=== PATIENT | female | born 1960 | race Caucasian/White ===

== ENCOUNTER 2017-09-13 12:31 | Inpatient (IN) | payer OTHER ==
--- NOTE | 2017-09-13 13:32 | RAD ---
INDICATION: Amnesia. COMPARISON: There are no prior studies available for comparison. TECHNIQUE: Contiguous axial sections of the brain were obtained from the skull base to the vertex without contrast. FINDINGS: The ventricles, cisterns and sulci are within normal limits. No significant focal abnormality or mass effect is seen. There is no evidence for hemorrhage. No significant focal osseous abnormality is seen. The visualized portion of the paranasal sinuses and mastoid air cells appear clear. IMPRESSION: NO EVIDENCE FOR ACUTE INTRACRANIAL ABNORMALITY.
[2017-09-13 13:51] LABS: Hematocrit 44 % (35-47); Hemoglobin 15.3 g/dl (12.0-16.0); Mean Corpuscular HGB Conc 35 g/dl (31-36); Mean Corpuscular Hemoglobin 31 pg (27-31); Mean Corpuscular Volume 88 fL (80-97); Mean Platelet Volume 8 um3 (7.4-10.4); Red Blood Count 4.96 10^6/ul (4.0-5.4); Red Cell Distribution Width 13 % (10.5-15); White Blood Count 9.5 10^3/ul (3.5-10.8)
[2017-09-13] MEDS ORDERED: Acetaminophen TAB* 325 MG ONE (13:53)
[2017-09-13] MEDS ORDERED: Acetaminophen TAB* 325 MG PO ONE (13:55)
[2017-09-13 14:10] LABS: ALT 25 U/L (7-52); Albumin 4.3 g/dL (3.2-5.2); Alkaline Phosphatase 67 U/L (34-104); BUN/Creatinine Ratio 17.4 (8-20); Blood Urea Nitrogen 15 mg/dL (6-24); CO2 Carbon Dioxide 23 mmol/L (22-32); Calcium 9.5 mg/dL (8.6-10.3); Chloride 104 mmol/L (101-111); EGFR African American 87.2 (>60); EGFR Non-African American 67.8 (>60); Globulin 2.8 g/dL (2-4); Glucose 119 mg/dL (70-100); Sodium 136 mmol/L (133-145); Total Protein 7.1 g/dL (6.4-8.9)
[2017-09-13 14:34] LABS: Alcohol < 10 mg/dL (<10)
[2017-09-13 14:38] LABS: Anion Gap 9 mmol/L (2-11)
[2017-09-13 14:50] LABS: TSH (Thyroid Stimulating Horm) 0.38 mcIU/mL (0.34-5.60)
[2017-09-13 14:52] LABS: Free T4 0.86 ng/dL (0.61-1.12)
[2017-09-13 15:01] LABS: Vitamin B12 429 pg/mL (180-914)
[2017-09-13 15:06] LABS: Urine Bacteria Absent (Absent); Urine Bilirubin Negative (Negative); Urine Glucose Negative (Negative); Urine Nitrite Negative (Negative)
[2017-09-13 15:08] LABS: AST 26 U/L (13-39); Potassium 3.6 mmol/L (3.5-5.0)
[2017-09-13 15:16] LABS: Benzodiazepine Urine Screen None Detected (None Detect)
[2017-09-13] MEDS ORDERED: ALPRAZolam TAB* 0.25 MG PO PRN (16:36)
[2017-09-13] MEDS ORDERED: Acetaminophen TAB* 325 MG PO PRN (16:38)
[2017-09-13] MEDS ORDERED: Atorvastatin* 10 MG TAB PO SCH (18:00)
[2017-09-13] MEDS: Heparin VIAL(*) 5000 UNITS/ML VIAL (FIVE THOUSAND) SUBCUT SCH (20:45)
--- NOTE | 2017-09-13 21:42 | HP ---
CC: Dr. Daly * [facility] MEDICINE HISTORY AND PHYSICAL: DATE OF ADMISSION: 09/13/17 PRIMARY CARE PROVIDER: Dr. Daly. ATTENDING PHYSICIAN: Aura García MD * (dictation provided by Naima Mesa NP ) CHIEF COMPLAINT: Amnesia. HISTORY OF PRESENT ILLNESS: Ms. Hood is a 57-year-old female with past medical history of recent treatment for depression and anxiety as well as a more distant history in 2014 of what was thought to be a transient global amnesia episode. Ms. Hood notes that in 2015, she had an episode of amnesia where was at work and the next thing she remembers she was at home wearing different clothing. She had no recollection of about a 5 to 6 hour event. She was seen by her primary care physician and went on to have brain MRI, carotid Doppler study, transthoracic echocardio-gram, EEG and consultation with Dr. Mora from Neurology. This workup was negative other than to show that the patient had some concern for few scattered small foci of elevated T2/FLAIR signal within the periventricular, subcortical, and pontine white matter. The patient had no further episodes until today. Per the patient's boyfriend who was with her at that time, he states that when she went to get out of bed that she seemed confused. She repeatedly stated that she could not remember what happened on Thanksgiving, nor did she remember making pies before Thanksgiving. She did not remember an intervening meeting with friend. She ultimately was brought by her friend to the emergency room over from [place]. The friend states that the patient did remember driving in the car. The patient states she has some better recollection now. She remembers being in the parking lot here at the hospital. She does remember some of Thanksgiving, but her memory seems spotty. She had headache in the emergency room, but this resolved well with Tylenol. She denies any other recent complaints. She has had no fevers. No chills. No chest pain. No shortness of breath. No nausea, vomiting, diarrhea, or abdominal pain. She does feel a bit nauseous at this time. In the emergency room, Ms. Hood had a CT brain, which showed no evidence for acute intracranial abnormality. Her labs were unremarkable. Urine showed no evidence of infection. Tox screen was negative. Vital signs are stable. PAST MEDICAL HISTORY: 1. 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 2. Depression. 3. Anxiety. MEDICATIONS: 1. Escitalopram 10 mg p.o. daily. 2. Loratadine 1 tab daily. 3. Multivitamin with mineral 1 tab p.o. q.a.m. 4. Alprazolam 0.25 mg p.o. q.8 hours p.r.n. 5. Aspirin 81 mg p.o. q.a.m. 6. Simvastatin 10 mg p.o. q.p.m. ALLERGIES: No known drug allergies. FAMILY HISTORY: Her father is alive and well. There is no family history of migraines. SOCIAL HISTORY: No report of tobacco use. The patient drinks alcohol very occasionally. There is no report of illicit drug use. She states that her friend, Madhuri and her daughter would be the healthcare proxies. REVIEW OF SYSTEMS: Constitutional: No fevers, no chills, no unintended weight loss. Cardiac: No chest pain or edema. Respiratory: No cough, hemoptysis, or shortness of breath. GI: Positive for a little bit of nausea now in the emergency room. No vomiting. No nausea before. No diarrhea. No abdominal pain. : No gross hematuria or dysuria. Neuro: No focal weakness or sensory loss. Positive for amnesia. Eyes: No visual complaints. ENT: No dysphagia. Musculoskeletal: No arthralgias or myalgias. Skin: No rashes or lesions. Psych: Positive for depression and anxiety. PHYSICAL EXAMINATION GENERAL: Ms. Hood is sitting up in the bed. She is in no acute distress. VITAL SIGNS: Blood pressure 180/81, heart rate 80, temperature 97.0, respiratory rate 16, O2 saturation 98% on room air. NEURO: She is alert and oriented x3. She moves all extremities equally. There is no facial asymmetry or focal weakness. Her pupils are equal and reactive to light. Her extraocular movements are intact. She has good rapid finger movements. She has good known ataxia noted with [id number]. She has good normal [id number] without evidence of ataxia. LABORATORY DATA/DIAGNOSTIC STUDIES: Sodium 136, potassium 3.6, chloride 104, serum bicarbonate 23, BUN 15, creatinine 0.86, glucose 119. White blood cell count 9.5, hemoglobin 15.3, hematocrit 44, platelets 236,000. INR 0.88. CT brain shows no evidence of acute intracranial abnormalities. EKG shows sinus rhythm with heart rate of 77. No evidence of ischemia. ASSESSMENT: Ms. Hood is a 57-year-old female with past medical history of depression and anxiety with concern for possible transient global amnesia in the past who presents to the hospital today with an episode where she seems to have retrograde amnesia. Our plans are for observation in the hospital for the followin. Retrograde amnesia: Her symptoms are similar to transient global amnesia. However, she did have abnormal MRI with FLAIR signal in white matter diffusely back in 2015. This case had been reviewed with Dr. Monatna. He would like to the patient admitted to the hospital for repeat MRI and neurological consultation. The patient will have neurological checks q.4 hours. 2. Depression and anxiety. Continue alprazolam. Escitalopram is not available on formulary. She can resume that when she returns home. 3. Code status is full code. TIME SPENT: Approximately 60 minutes were spent on the admission of this patient, more than half the time spent with the patient at the bedside reviewing the events leading up to this hospitalization, performing the physical examination, and reviewing my plan of care. NAIMA MESA NP [id number]/CPS #: [id number] HORACIO
--- NOTE | 2017-09-13 22:27 | ED ---
Madhuri Verdin Abhishek, scribed for Maldonado Cabrera MD on 09/13/17 at 1312 . Neurological HPI - HPI Summary HPI Summary: This patient is a 57 year old F [facility] accompanied by female and male with a chief complaint of memory loss since last night. Pt reports intermittent sleeping. Pt states she does not recall some events from thanksgiving dinner and after, however she has started to remember events prior to thanksgiving. Pt's male friend states that she was disoriented at around 0400 after "checking her phone to look at thanksgiving pictures." The patient rates the pain 0/10 in severity. Symptoms aggravated by nothing. Symptoms alleviated by nothing. Patient reports nausea, and sexual activity last night. Patient denies stress, lack of sleep, appetite change, no tingling, no numbness , SOB, weight loss or weight gain. Patient reports taking the following medication(s): simvastatin, and an antidepressant. - History of Current Complaint Chief Complaint: EDNeurologicalDeficit Stated Complaint: MEMORY LOSS Time Seen by Provider: 09/13/17 12:53 Hx Obtained From: Patient, Other: - male and female female companions Hx From Patient Unobtainable Due To: Other - memory loss Onset/Duration: Gradual Onset, Started hours ago - since last night Pain Intensity: 0 Pain Scale Used: 0-10 Numeric Character: Other: - disorientated Aggravating: Nothing Alleviating: Nothing Associated Signs and Symptoms: Positive: Memory Loss, Nausea/Vomiting - Allergy/Home Medications Allergies/Adverse Reactions: Allergies Allergy/AdvReac Type Severity Reaction Status Date / Time No Known Allergies Allergy Verified 09/13/17 12:34 Home Medications: Home Medications ALPRAZolam TAB* [Xanax TAB*] 0.25 mg PO Q8H PRN 09/13/17 [History Confirmed ] Escitalopram (NF) [Lexapro 10 mg (NF)] 10 mg PO DAILY 09/13/17 [History Confirmed 09/13/17] PMH/Surg Hx/FS Hx/Imm Hx Endocrine/Hematology History: Denies: Hx Diabetes Cardiovascular History: Denies: Hx Hypertension Respiratory History: Denies: Hx Asthma History: Denies: Hx Renal Disease Sensory History: Reports: Hx Contacts or Glasses - reading inst given, Hx Hearing Aid - inst given luis hearing aids Opthamlomology History: Reports: Hx Contacts or Glasses - reading inst given Neurological History: Reports: Other Neuro Impairments/Disorders - transient global amnesia Psychiatric History: Denies: Hx Panic Disorder - Cancer History Hx Chemotherapy: No Hx Radiation Therapy: No - Surgical History [place], [place], and [place] [facility] [place] [facility] [place] 2012 [facility]; SCAR TISSUE LUMP RT BREAST 2013 [facility] Hx Anesthesia Reactions: Yes - TAKES LONG TIME TO WAKE UP, VOMITING Infectious Disease History: No Infectious Disease History: Denies: History Other Infectious Disease, Traveled Outside the [place] in Last 30 Days - Family History Known Family History: Positive: Cardiac Disease - [place], Other - Negative CVA, and breast cancer - Social History Alcohol Use: Occasionally Alcohol Amount: 2-6/MONTH Substance Use Type: Reports: None Smoking Status (MU): Never Smoked Tobacco Review of Systems Constitutional: Negative Eyes: Negative ENT: Negative Cardiovascular: Negative Negative: Shortness Of Breath Positive: Nausea Genitourinary: Other - sexual activity last night Musculoskeletal: Negative Skin: Negative Neurological: Other - Negative stress, lack of sleep, appetite change, and weight loss or gain Negative: Numbness Psychological: Normal All Other Systems Reviewed And Are Negative: Yes Physical Exam - Summary Physical Exam Summary: Constitutional: Well-developed, Well-nourished, Alert. (-) Distressed Skin: Warm, Dry HENT: Normocephalic; Atraumatic Eyes: Conjunctiva normal Neck: Musculoskeletal ROM normal neck. (-) JVD, (-) Stridor, (-) Tracheal deviation Cardio: Rhythm regular, rate normal, Heart sounds normal; Intact distal pulses; The pedal pulses are 2+ and symmetric. Radial pulses are 2+ and symmetric. (-) Murmur Pulmonary/Chest wall: Effort normal. (-) Respiratory distress, (-) Wheezes, (-) Rales Abd: Soft, (-) Tenderness, (-) Distension, (-) Guarding, (-) Rebound Musculoskeletal: (-) Edema Lymph: (-) Cervical adenopathy Neuro: Alert, Oriented x3 Psych: Mood and affect Normal Triage Information Reviewed: Yes Vital Signs On Initial Exam: Initial Vitals Temp Pulse Resp BP Pulse Ox 97.0 F 87 16 180/81 98 09/13/17 12:35 09/13/17 12:35 09/13/17 12:35 09/13/17 12:35 09/13/17 12:35 Vital Signs Reviewed: Yes Diagnostics - Vital Signs Vital Signs Temp Pulse Resp BP Pulse Ox 09/13/17 12:35 97.0 F 87 16 180/81 98 - Laboratory Lab Results: Lab Results 09/13/17 09/13/17 09/13/17 Range/Units 13:40 13:40 13:40 WBC 9.5 (3.5-10.8) 10^3/ul RBC 4.96 (4.0-5.4) 10^6/ul Hgb 15.3 (12.0-16.0) g/dl Hct 44 (35-47) % MCV 88 (80-97) fL MCH 31 (27-31) pg MCHC 35 (31-36) g/dl RDW 13 (10.5-15) % Plt Count 236 (150-450) 10^3/ul MPV 8 (7.4-10.4) um3 INR (Anticoag Therapy) 0.88 L (0.89-1.11) APTT 29.1 (26.0-36.3) seconds Sodium 136 (133-145) mmol/L Potassium 3.6 (3.5-5.0) mmol/L Chloride 104 (101-111) mmol/L Carbon Dioxide 23 (22-32) mmol/L Anion Gap 9 (2-11) mmol/L BUN 15 (6-24) mg/dL Creatinine 0.86 (0.51-0.95) mg/dL Est GFR ( Amer) 87.2 (>60) Est GFR (Non-Af Amer) 67.8 (>60) BUN/Creatinine Ratio 17.4 (8-20) Glucose 119 H (70-100) mg/dL Calcium 9.5 (8.6-10.3) mg/dL Total Bilirubin 0.50 (0.2-1.0) mg/dL AST 26 (13-39) U/L ALT 25 (7-52) U/L Alkaline Phosphatase 67 (34-104) U/L Total Protein 7.1 (6.4-8.9) g/dL Albumin 4.3 (3.2-5.2) g/dL Globulin 2.8 (2-4) g/dL Albumin/Globulin Ratio 1.5 (1-3) Vitamin B12 429 (180-914) pg/mL TSH 0.38 (0.34-5.60) mcIU/mL Free T4 0.86 (0.61-1.12) ng/dL Urine Color Urine Appearance Urine pH (5-9) Ur Specific [place] (1.010-1.030) Urine Protein (Negative) Urine Ketones (Negative) Urine Blood (Negative) Urine Nitrate (Negative) Urine Bilirubin (Negative) Urine Urobilinogen (Negative) Ur Leukocyte Esterase (Negative) Urine WBC (Auto) (Absent) Urine RBC (Auto) (Absent) Ur Squamous Epith Cells (Absent) Urine Bacteria (Absent) Urine Glucose (Negative) Urine Ascorbic Acid (Negative) Urine Opiates Screen (None Detect) Ur Barbiturates Screen (None Detect) Ur Phencyclidine Scrn (None Detect) Ur Amphetamines Screen (None Detect) U Benzodiazepines Scrn (None Detect) Urine Cocaine Screen (None Detect) U Cannabinoids Screen (None Detect) Serum Alcohol < 10 (<10) mg/dL 09/13/17 09/13/17 Range/Units 14:31 14:31 WBC (3.5-10.8) 10^3/ul RBC (4.0-5.4) 10^6/ul Hgb (12.0-16.0) g/dl Hct (35-47) % MCV (80-97) fL MCH (27-31) pg MCHC (31-36) g/dl RDW (10.5-15) % Plt Count (150-450) 10^3/ul MPV (7.4-10.4) um3 INR (Anticoag Therapy) (0.89-1.11) APTT (26.0-36.3) seconds Sodium (133-145) mmol/L Potassium (3.5-5.0) mmol/L Chloride (101-111) mmol/L Carbon Dioxide (22-32) mmol/L Anion Gap (2-11) mmol/L BUN (6-24) mg/dL Creatinine (0.51-0.95) mg/dL Est GFR ( Amer) (>60) Est GFR (Non-Af Amer) (>60) BUN/Creatinine Ratio (8-20) Glucose (70-100) mg/dL Calcium (8.6-10.3) mg/dL Total Bilirubin (0.2-1.0) mg/dL AST (13-39) U/L ALT (7-52) U/L Alkaline Phosphatase (34-104) U/L Total Protein (6.4-8.9) g/dL Albumin (3.2-5.2) g/dL Globulin (2-4) g/dL Albumin/Globulin Ratio (1-3) Vitamin B12 (180-914) pg/mL TSH (0.34-5.60) mcIU/mL Free T4 (0.61-1.12) ng/dL Urine Color Yellow Urine Appearance Clear Urine pH 5.0 (5-9) Ur Specific [place] 1.009 L (1.010-1.030) Urine Protein Negative (Negative) Urine Ketones Negative (Negative) Urine Blood 1+ H (Negative) Urine Nitrate Negative (Negative) Urine Bilirubin Negative (Negative) Urine Urobilinogen Negative (Negative) Ur Leukocyte Esterase Negative (Negative) Urine WBC (Auto) Absent (Absent) Urine RBC (Auto) Trace(0-2/hpf) (Absent) Ur Squamous Epith Cells Present H (Absent) Urine Bacteria Absent (Absent) Urine Glucose Negative (Negative) Urine Ascorbic Acid * H (Negative) Urine Opiates Screen None detected (None Detect) Ur Barbiturates Screen None detected (None Detect) Ur Phencyclidine Scrn None detected (None Detect) Ur Amphetamines Screen None detected (None Detect) U Benzodiazepines Scrn None detected (None Detect) Urine Cocaine Screen None detected (None Detect) U Cannabinoids Screen None detected (None Detect) Serum Alcohol (<10) mg/dL Result Diagrams: 09/13/17 13:40 09/13/17 13:40 Lab Statement: Any lab studies that have been ordered have been reviewed, and results considered in the medical decision making process. - CT Brain CT CT Interpretation Completed By: Radiologist - Ct Brain reveals NO EVIDENCE FOR ACUTE INTRACRANIAL ABNORMALITY. ED physician has reviewed this radiology report and agrees. - EKG 1502 EKG Rhythm: Sinus Rhythm - [address] Segment: Normal Re-Evaluation - Re-Evaluation 1456 Re-Evaluation Time: 14:56 Comment: Patient feels overwhelemed about being admitted and wants to talk to her best friend. Patient is having some recollection of events now. 1523 Comment: Patient is willing to stay in the [facility] and be admitted for observation Course/Dx - Course Course Of Treatment: This patient is a 57 year old F presenting to [facility] accompanied by female and male with a chief complaint of memory loss since last night. Patient reports nausea. Patient denies stress, lack of sleep, appetite change, no tingling, no numbness, SOB, weight loss or weight gain. Patient reports taking the following medication(s): simvastatin, and an antidepressant. Ct Brain reveals NO EVIDENCE FOR ACUTE INTRACRANIAL ABNORMALITY. ED physician has reviewed this radiology report and agrees. An EKG at 1502 reveals 77 bpm, sinus rhythm and normal ST segment. Consulted with Dr. [place] at 1430 and discussed prior abnormal MRI. He recommends another MRI and possible admittance into observation in the hospital today as well as Increase to full strength aspirin. Reeval at 1456: patient feels overwhelmed and wants to talk to her best friend. Patient is having some recollection of events now. Reeval at 1522 : patient agrees to stay in [facility] for admittance. Consulted with Dr. Jack and she accepts patient care at 1540. Dx will be retrograde amnesia and history of vascular disease. Patient will be admitted in the [facility] for observation. Patient is agreeable with this plan. - Diagnoses Provider Diagnoses: History of vascular disease, Retrograde amnesia - Physician Notifications Discussed Care Of Patient With: Aura Jack Time Discussed With Above Provider: 15:40 Instructed by Provider To: Admit As Observation Discharge - Discharge Plan Condition: Good Disposition: ADMITTED TO [facility] documentation as recorded by the Madhuri joshua Abhishek accurately reflects the service I personally performed and the decisions made by me, Maldonado Cabrera MD.
[2017-09-14] MEDS: Heparin VIAL(*) 5000 UNITS/ML VIAL (FIVE THOUSAND) SUBCUT SCH ×3 (05:47→23:14)
[2017-09-14] MEDS ORDERED: Aspirin Low Dose CHEW TAB* 81 MG PO SCH (09:00)
--- NOTE | 2017-09-14 11:06 | RAD ---
Indication: Sudden onset memory loss. Comparison: September 13, 2017 CT and July 04, 2015 MRI. Technique: [facility] 1.5 Darlyn [id number] with GEM suite. MRI brain without contrast. Report: Solitary small focus of restricted diffusion with corresponding decreased signal on ADC map at the RIGHT temporal lobe parahippocampal gyrus consistent with acute or subacute ischemia. Negative for associated mass effect. Small burden of nonspecific T2 and FLAIR hyperintense foci at the periventricular and subcortical white matter of the frontal and parietal lobes without significant interval change. Unremarkable cerebral sulci, ventricles, and basal cisterns. No intra or extra-axial fluid collection evident. Unremarkable orbital contents. Preserved major intracranial flow-voids. Clear paranasal sinuses and mastoid air spaces. Unremarkable calvarium and skull base as well as the scalp. IMPRESSION: 1. Small focus of acute or subacute ischemia at the RIGHT temporal lobe parahippocampal gyrus. 2. No significant change in mild burden of nonspecific T2 hyperintensities at the periventricular and subcortical white matter of the cerebral hemispheres most likely representing chronic small vessel ischemic disease. Results discussed with Nurse Grant on 09/14/2017 11:01 AM EST
[2017-09-14 11:43] LABS: Cholesterol 267 mg/dL; HDL Cholesterol 63.7 mg/dL; LDL Cholesterol 163 mg/dL; Triglycerides 203 mg/dL
[2017-09-14] MEDS ORDERED: Iohexol 350* (CONTRAST) 500 ML MDV IV ONE (14:15)
[2017-09-14] MEDS: Clopidogrel TAB* 75 MG PO SCH (14:24)
--- NOTE | 2017-09-14 16:02 | RAD ---
INDICATION: CVA COMPARISON: MRI brain September 14, 2017 TECHNIQUE: Axial source images were acquired with coronal and sagittal reconstructions. CT angiographic technique was utilized with injection of 80 mL Omnipaque 350. FINDINGS: Aortic arch: There are no CT angiogram abnormalities of the arch or the great vessels arising from the arch. Right carotid: The internal carotid artery, carotid bifurcation, extracranial portions of the internal carotid artery, carotid artery at the skull base, carotid siphon, and carotid termination appear normal. Left carotid:The internal carotid artery, carotid bifurcation, extracranial portions of the internal carotid artery, carotid artery at the skull base, carotid siphon, and carotid termination appear normal. Right middle and anterior cerebral arteries: There are no CT angiographic abnormalities of the middle or anterior cerebral arteries. Left middle and anterior cerebral arteries: There are no CT angiographic abnormalities of the middle or anterior cerebral arteries Right vertebral: The CT angiographic appearance of the vertebral artery is normal. Left vertebral: The CT angiographic appearance of the vertebral artery is normal. Basilar artery: The basilar artery and basilar tip appear normal. Posterior cerebral arteries: The distal distribution of the right and left posterior cerebral arteries is normal. [place] of [place]: The CT angiographic appearance of the [place] of [place] is normal. Source images show no evidence of mass or adenopathy within the neck. There are no focal brain parenchymal abnormalities or abnormal areas of enhancement. IMPRESSION: THE CT AND RADIOGRAPHIC ABNORMALITIES. CPT II Codes: 3100F PQRS
--- NOTE | 2017-09-14 17:21 | PN ---
Subjective Date of Service: 09/14/17 Interval History: Patient states that her memory of the time in which she was previous amnestic has improved to the point that she only can't remember from 0000 to 0800 on . Patient denies any other complaints, including weakness, numbness, tingling , changes in vision, slurred speech, chest pain, SOB, N/V, dizziness, F/C, abdominal pain, diarrhea, constipation, or other abnormality. 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 Bilateral Conversational hearing loss. Objective Active Medications: Acetaminophen (Tylenol Tab*) 650 mg PO Q6H PRN PRN Reason: PAIN Last Admin: 09/14/17 15:30 Dose: 650 mg Alprazolam (Xanax Tab*) 0.25 mg PO Q8H PRN PRN Reason: ANXIETY Atorvastatin Calcium (Lipitor*) 20 mg PO QPM [facility] Clopidogrel Bisulfate (Plavix Tab*) 75 mg PO DAILY [facility] Last Admin: 09/14/17 14:24 Dose: 75 mg Heparin Sodium (Porcine) (Heparin Vial(*)) 5,000 units SUBCUT Q8HR [facility] Last Admin: 09/14/17 13:42 Dose: 5,000 units Temp Pulse Resp BP Pulse Ox 98.5 F 74 16 128/72 97 09/14/17 11:26 09/14/17 11:26 09/14/17 11:26 09/14/17 11:26 09/14/17 11:26 Oxygen Devices in Use Now: None Appearance: Patient is a 57yo female who appears stated age and is sitting in the bed in [facility]. Eyes: No Scleral Icterus, PERRLA Ears/Nose/Mouth/Throat: NL Teeth, Lips, Gums, Clear Oropharnyx, Mucous Membranes Moist Neck: NL Appearance and Movements; NL JVP, Trachea Midline Respiratory: Symmetrical Chest Expansion and Respiratory Effort, Clear to Auscultation Cardiovascular: NL Sounds; No Murmurs; No JVD, RRR, No Edema Abdominal: NL Sounds; No Tenderness; No Distention, No Hepatosplenomegaly Lymphatic: No Cervical Adenopathy Extremities: No Edema, No Clubbing, Cyanosis Skin: No Rash or Ulcers, No Nodules or Sclerosis Neurological: Alert and Oriented x 3, NL Sensation, NL Gait, NL Muscle Strength and Tone, - - CN II-XII intact. Cerebellar testing normal. Reflexes 2+ and symmetrical B/L. Result Diagrams: 09/13/17 13:40 09/13/17 13:40 Additional Lab and Data: Lab Results Assess/Plan/Problems-Billing Assessment: Patient is a 57yo female with a PMH significant for TGA, Depression, Anxiety, and previous white matter lesions on MRI who presents with global amnesia spanning 8 hours who was found to have an acute to subacute area of ischemia in the right temporal lobe. - Patient Problems (1) Right temporal lobe infarction Current Visit: Yes Status: Acute Code(s): I63.50 - CEREB INFRC DUE TO UNSP OCCLS OR STENOS OF UNSP CEREB ARTERY SNOMED Code(s): 166297812 Comment: MRI shows CVA of right temporal lobe. Appreciate neurology consult. Unusual presentation, concern for autoimmune white matter disease. Will check Vitamin D level. Concern for hypercoagulability, workup pending. No other neurological deficits. Ocurred while on ASA, will switch to Plavix. CTA of head and Neck WNL. Echo with bubble study pending. Echo from 2015 showed no abnormalities. LDL 163 and HbA1c is 5.8. (2) TGA (transient global amnesia) Current Visit: Yes Status: Acute Code(s): G45.4 - TRANSIENT GLOBAL AMNESIA SNOMED Code(s): 301955472 Comment: Improving, abnormal presentation for this type of stroke. Will continue to monitor. (3) Anxiety Current Visit: Yes Status: Acute Code(s): F41.9 - ANXIETY DISORDER, UNSPECIFIED SNOMED Code(s): 58137462 Comment: Continue Citalopram. Patient anxious about diagnosis but coping well. (4) Hyperlipidemia Current Visit: Yes Status: Acute Code(s): E78.5 - HYPERLIPIDEMIA, UNSPECIFIED SNOMED Code(s): 21759659 Comment: Increase Lipitor to 20mg from 5mg of Simvastatin. Recommend F/U outpatient. (5) Prediabetes Current Visit: Yes Status: Acute Code(s): R73.03 - PREDIABETES SNOMED Code (s): 170735436 Comment: HgA1c 5.8. Discussed lifestyle changes to manage diabetes with patient. (6) DVT prophylaxis Current Visit: Yes Status: Acute Code(s): JVA9697 - SNOMED Code(s): 681466680 Comment: Heparin subQ. (7) Full code status Current Visit: Yes Status: Acute Code(s): Z78.9 - OTHER SPECIFIED HEALTH STATUS SNOMED Code(s): 140677470 Status and Disposition: Patient is admitted inpatient. Estimated LOS 1 day.
[2017-09-14] MEDS ORDERED: Atorvastatin* 10 MG TAB PO SCH (18:00)
--- NOTE | 2017-09-14 20:31 | CONS ---
CONSULTATION REPORT: DATE OF CONSULT/DICTATION: 09/14/17 PATIENT OF: Dr. Daly and Naima Mesa NP HISTORY OF PRESENT ILLNESS: This is a 57-year-old woman I am asked to evaluate for short-term memory loss. Of note, in September of 2015, she had an episode of acute short-term memory loss with complete amnesia for 5 to 6 hours. She had an EEG at that time with frontally dominant slowing during hyperventilation suggestive of mild cerebral dysfunction, but no epileptiform potentials. She had an MRI at that time showing some disease in the white matter, small foci of white matter disorder, either thought to be secondary to small vessel ischemic change, migraine headache or demyelination. She also had a transthoracic echo, which was normal and she had a carotid Doppler done in June 2015 that showed no significant stenosis, but some atheromatous disease. I spoke to the boyfriend who was with her. They have been making love the evening and night before admission up until 4 in the morning. She then went to sleep and when she woke up, she had no recollection of several-day period of time up until and including Thanksgiving. Her memory slowly improved throughout the course of yesterday, but she could still not remember the events of that night. She can remember Thanksgiving, and she has good short-term recall at this point. I spoke to the boyfriend by phone, who confirms that they have been making love. He also notes that she jerked a couple of times in her sleep that is not rhythmic and he did not at that time think there was anything suspicious going on and then when she woke, she did not remember anything. She has a history of depression and anxiety in addition to her suspected transient global amnesia. PAST MEDICAL HISTORY: She had a pop-pop bypass in 2006, , and a breast reduction. MEDICATIONS: On admission include: 1. Alprazolam 0.25 q.8 hours p.r.n. 2. Loratadine 1 tab daily. 3. Escitalopram 10 mg daily. 4. Aspirin 81 mg a day. 5. Simvastatin 10 mg a day. ALLERGIES: No known drug allergies. FAMILY HISTORY: Father is alive and well. There is no family history for strokes or migraine. SOCIAL HISTORY: She does not use tobacco. She drinks occasionally. No drug use. REVIEW OF SYSTEMS: She has had no clearcut prior seizures. Review of systems negative in all 14 spheres other than the HPI. PHYSICAL EXAM: Temperature 97.6, pulse 76, respirations 16, blood pressure 133/ 74. She is alert and oriented with normal speech and comprehension. Memory was 3/3. Cranial nerves II through XII were normal. Fundi were benign. Motor exam revealed normal tone, strength, coordination, and [id number]. Strength 5/ 5. Sensation was intact to light touch. Reflexes were 2 and equal, downgoing toes. Neck was supple. Chest: Clear. Cardiovascular: Regular rate and rhythm. Abdomen: Soft with positive bowel sounds. DIAGNOSTIC STUDIES/LAB DATA: Her CT scan was negative. Labs include negative drug screen. Negative UA. CMP normal. Normal B12 and thyroid testing. INR is 0.88, PTT 29. Normal CBC. IMPRESSION AND PLAN: Caitlin had a second episode of what sounds like transient global amnesia. Two things to comment on from last hospitalization for this, one was her abnormal MRI scan and this was in somebody who is 57 at the time so white matter disease is somewhat unusual and it makes sense to recheck an MRI scan to make sure that this does not progressing or any acute findings. Even if this is small vessel disease, if this is progressing that would be of note. It is possible that the transient global amnesia could have been provoked from either migrainous phenomenon, where she had no headache other than a mild chronic neck ache yesterday, but clearly can trigger migrainous symptoms. This does seem to be the case. Obviously stress is believed to play a role in some people having transient global amnesia. The abnormal EEG from last time is of unclear clinical significance. We will recheck to see if this is persistent finding or whether there were any epileptiform potentials at this point. Thank you for sharing her case. [id number]/[facility] #: [id number] HORACIO
[2017-09-15] MEDS: Heparin VIAL(*) 5000 UNITS/ML VIAL (FIVE THOUSAND) SUBCUT SCH (05:44)
[2017-09-15 06:19] LABS: Hematocrit 42 % (35-47); Hemoglobin 14.5 g/dl (12.0-16.0); Mean Corpuscular HGB Conc 35 g/dl (31-36); Mean Corpuscular Hemoglobin 31 pg (27-31); Mean Corpuscular Volume 89 fL (80-97); Mean Platelet Volume 8 um3 (7.4-10.4); Red Blood Count 4.75 10^6/ul (4.0-5.4); Red Cell Distribution Width 13 % (10.5-15); White Blood Count 5.6 10^3/ul (3.5-10.8)
[2017-09-15 06:46] LABS: BUN/Creatinine Ratio 20.5 (8-20); Calcium 8.9 mg/dL (8.6-10.3); EGFR African American 97.6 (>60); EGFR Non-African American 75.9 (>60); Potassium 3.7 mmol/L (3.5-5.0)
[2017-09-15] MEDS: Clopidogrel TAB* 75 MG PO SCH (09:16)
--- NOTE | 2017-09-15 11:36 | ECHO ---
Patient: MALU THOMAS [facility] Rec#: [id number] : 1960 Date: 09/15/2017 Age: 57y Height: 157.5 cm / 62.0 in Weight: 63.5 kg / 140.0 lbs Sex: F BSA: 1.6 Room#: [facility] Admit Date#: 09/14/2017 Type: Inpatient Referring: Gunnar Dent MD Reading: Misael Valdez MD [employer] Secretary: Comfort Perez RN RDCS CC: Alanna Daly MD Transthoracic Echocardiogram Indication: CVA BP: 120/73 HR: 66 Rhythm: NSR Findings History: HLD, PVD, anxiety, prior episode of amnesia in 2014 Technical Comments: The study quality is fair. Completed at 0920. Left Ventricle: The left ventricular chamber size, wall thickness and systolic function are within normal limits. There are no wall motion abnormalities Global left ventricular wall motion and contractility are within normal limits. There is normal left ventricular systolic function. The estimated ejection fraction is 55-60%. There is an E to A reversal in the mitral valve flow pattern suggestive of diastolic dysfunction. Left Atrium: The left atrial chamber size is normal. Right Ventricle: The right ventricular chamber size and systolic function are within normal limits. Right Atrium: The right atrial cavity size is normal. The bubble study is negative. A patent foramen ovale is not demonstrated with color Doppler and agitated contrast. Aortic Valve: The aortic valve is trileaflet. The aortic valve leaflets are mildly thickened. There is no evidence of aortic regurgitation. There is no evidence of aortic stenosis. Mitral Valve: The mitral valve leaflets are mildly thickened. There is trace to mild mitral regurgitation. There is no evidence of mitral stenosis. Tricuspid Valve: The tricuspid valve leaflets are normal. There is trace tricuspid regurgitation. Unable to estimate the right ventricular systolic pressure. Pulmonic Valve: The pulmonic valve structure is not well visualized. There is trace to mild pulmonic regurgitation. There is no pulmonic stenosis. Pericardium: There is no significant pericardial effusion. Aorta: There is no dilatation of the ascending aorta. There is no dilatation of the aortic arch. There is no dilation of the aortic root. Pulmonary Artery: The main pulmonary artery is not well visualized. Venous: The inferior vena cava appears normal in size. There is a greater than 50% respiratory change in the inferior vena cava dimension. Contrast: Normal saline was used as contrast for the bubble study. Images 14 and 15. Summary: There are no significant changes when compared to the previous study done on 07/06/15 Conclusions Global left ventricular wall motion and contractility are within normal limits. There is normal left ventricular systolic function. The estimated ejection fraction is 55-60%. The right ventricular chamber size and systolic function are within normal limits. A patent foramen ovale is not demonstrated with color Doppler and agitated contrast. There is no evidence of aortic stenosis. There is trace to mild mitral regurgitation. There is trace tricuspid regurgitation. Unable to estimate the right ventricular systolic pressure. There is no significant pericardial effusion. There are no significant changes when compared to the previous study done on 07/06/15 Measurements Name Value Normal Range RVDdMajor (2D) 2.8 cm (2.2 - 4.4) RAd ISD 4CH 3.6 cm (3.4 - 4.9) RA (A4C)W 3.3 cm (2.9 - 4.6) IVSd (2D) 0.9 cm (0.6 - 1) LVPWd (2D) 1 cm (0.6 - 1) LVIDd (2D) 4.1 cm (3.6 - 5.4) LVIDs (2D) 2.9 cm - LV FS (2D) 29 % (25 - 45) Aortic Annulus 1.9 cm (1.4 - 2.6) Ao root diameter (2D) 2.8 cm (2.1 - 3.5) Ascending Ao 2.8 cm (2.1 - 3.4) Aortic arch 2.5 cm (1.8 - 3.4) LA dimension (AP) 2D 3.3 cm (2.3 - 3.8) LAd ISD 4CH 3.2 cm (2.9 - 5.3) LA ISD 4CH W 3.4 cm (2.5 - 4.5) Name Value Normal Range LA ESV SP 4CH (A/L) 31 ml - LA ESV SP 2CH (A/L) 41 ml - LA ESV BP (A/L) 37 ml - LA ESV BP (A/L) index 20.1 ml/m2 - LA ESV SP 4CH (MOD) 25 ml - LA ESV SP 2CH (MOD) 39 ml - Name Value Normal Range MV E-wave Vmax 0.8 m/sec - MV deceleration time 234 msec - MV A-wave Vmax 0.96 m/sec - MV E:A ratio 0.83 ratio - LV septal e' Vmax 0.07 m/sec - LV lateral e' Vmax 0.08 m/sec - LV E:e' septal ratio 11.4 ratio - LV E:e' lateral ratio 10 ratio - Name Value Normal Range AV Vmax 1.2 m/sec - AV VTI 27.8 cm - AV peak gradient 6.2 mmHg - AV mean gradient 3.6 mmHg - LVOT Vmax 0.85 m/sec - LVOT VTI 20.1 cm - LVOT peak gradient 2.9 mmHg - LVOT mean gradient 1.7 mmHg - JOHN Vmax 0.65 m/sec - Name Value Normal Range IVC diameter 1.4 cm - Name Value Normal Range PV Vmax 0.75 m/sec -
[2017-09-15 12:31] VITALS: BP 126/66
--- NOTE | 2017-09-15 12:38 | DCNOTE ---
Subjective Date of Service: 09/15/17 Interval History: Patient seen and examined at bedside. No further symptoms. Patient ambulating without difficulty. She is distressed about having had a small stroke. 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 Bilateral Conversational hearing loss. Objective Active Medications: Acetaminophen (Tylenol Tab*) 650 mg PO Q6H PRN Alprazolam (Xanax Tab*) 0.25 mg PO Q8H PRN Atorvastatin Calcium (Lipitor*) 20 mg PO QPM [facility] Clopidogrel Bisulfate (Plavix Tab*) 75 mg PO DAILY [facility] Heparin Sodium (Porcine) (Heparin Vial(*)) 5,000 units SUBCUT Q8HR [facility] Vital Signs Temp Pulse Resp BP Pulse Ox 98.4 F 78 16 126/66 97 09/15/17 11:13 09/15/17 11:13 09/15/17 11:13 09/15/17 11:13 09/15/17 11:13 Oxygen Devices in Use Now: None Appearance: sitting up in bed, NAD Eyes: No Scleral Icterus, PERRLA Ears/Nose/Mouth/Throat: NL Teeth, Lips, Gums Neck: NL Appearance and Movements; NL JVP Respiratory: Symmetrical Chest Expansion and Respiratory Effort, Clear to Auscultation Cardiovascular: NL Sounds; No Murmurs; No JVD, RRR Abdominal: NL Sounds; No Tenderness; No Distention Extremities: No Edema Skin: No Rash or Ulcers Neurological: Alert and Oriented x 3, NL Muscle Strength and Tone Lines/Tubes/Other Access: Clean, Dry and Intact Peripheral IV Nutrition: Taking PO's Result Diagrams: 09/15/17 05:25 09/15/17 05:25 Additional Lab and Data: . Assess/Plan/Problems-Billing Assessment: Patient is a 57yo female with a PMH significant for TGA, Depression, Anxiety, and previous white matter lesions on MRI who presents with global amnesia spanning 8 hours who was found to have an acute to subacute area of ischemia in the right temporal lobe. - Patient Problems (1) Right temporal lobe infarction (2) TGA (transient global amnesia) (3) Hyperlipidemia (4) Anxiety (5) Prediabetes (6) DVT prophylaxis (7) Full code status Status and Disposition: Patient is admitted inpatient. See dictated discharge summary for detail regarding discharge plan.
--- NOTE | 2017-09-16 03:35 | DS ---
CC: Dr. Montana; Dr. Daly * DISCHARGE SUMMARY: DATE OF ADMISSION: 09/13/17 DATE OF DISCHARGE: 09/15/17 PRIMARY CARE PROVIDER: Dr. Daly. ATTENDING PHYSICIAN: Dr. Jim Randhawa * (report dictated by Benson Zavala NP). CONSULTATIONS WHILE IN THE HOSPITAL: Dr. Montana, Neurology. PRIMARY DIAGNOSES: 1. Right temporal lobe cerebrovascular accident. 2. Transient global amnesia. SECONDARY DIAGNOSES: 1. Hyperlipidemia. 2. Anxiety. 3. Depression. STUDIES WHILE IN THE HOSPITAL: 1. CT of the brain without contrast 09/13/17, no evidence for acute intracranial abnormalities. 2. MRI of the brain without contrast 09/14/17, small focus of acute or subacute ischemia of the right temporal lobe, parahippocampal gyrus. No significant change and mild nonspecific T2 hyperintensities at the periventricular and subcortical white matter of the cerebral hemisphere most likely representing chronic small vessel disease. 3. CT of the head and neck 09/14/17, no CT or radiographic abnormalities. 4. Transthoracic echocardiogram 09/15/17, global left ventricular wall motion and contractility within normal limits. There is normal left ventricular systolic function. The estimated ejection fraction is 55% to 60%. The left ventricular chamber size and systolic function are within normal limits. Patent foramen ovale is not demonstrated with color Doppler and agitated contrast. There is no evidence of aortic stenosis. There is trace to mild mitral regurgitation. There is trace tricuspid regurgitation. Unable to estimate the right ventricular systolic pressure. There is no significant pericardial effusion. There are no significant changes compared to the previous study done on 07/06/15. MEDICATIONS AT THE TIME OF DISCHARGE: New medication: 1. Plavix 75 mg oral daily. Increased medications: 1. Lipitor 20 mg oral in the evening. The following medications the medications the patient came in on, which she should continue: 1. Multivitamin 1 tablet oral daily. 2. Claritin 1 tablet oral daily. 3. Lexapro 10 mg oral daily. 4. Xanax 0.25 mg every 8 hours as needed. The patient has been instructed to discontinue aspirin and Zocor has been increased. HISTORY OF PRESENT ILLNESS AND HOSPITAL COURSE: Ms. Hood is a 57-year-old female with past medical history significant for depression, anxiety as well as a distant history of transient global amnesia. In 2014, the patient had an episode of amnesia. She had a full workup that included EEG, transthoracic echocardiogram, MRI, and carotid Doppler that was negative. The patient presented to the emergency room on 09/13/17 with an episode of amnesia that resolved. The patient was admitted to the telemetry floor for monitoring and seen by Dr. Montana from Neurology. The patient had an MRI that showed a right temporal subacute versus acute CVA. When the patient came in, she was on aspirin and now with the presence of CVA, aspirin was changed to Plavix. The patient's lipid profile was elevated, cholesterol 267 and LDL 163. Her Lipitor was increased from 10 mg to 20 mg. Because of her young age, the patient had a hypercoagulable workup sent at the time of this dictation, this is pending and should be followed up as an outpatient. The patient also had an EEG which was normal. The patient's symptoms resolved and she had no further neurological deficits during her admission. On 09/15/17, vitals were as follows; the patient was stable for discharge, temperature 98.4, heart rate 78, respiratory rate 16, blood pressure 126/66, oxygen saturation 96%. At this point, she was stable for discharge. DISCHARGE PLAN: The patient was discharged on a heart healthy diet. I discussed at length with the patient further stroke symptoms that she is to be aware of. She should return to the hospital if she experiences any vision changes, memory loss, numbness, weakness. The patient has a followup appointment with Dr. Daly on 09/21/17 at 2:50 p.m. The patient should follow up with Dr. Montana within 4 to 6 weeks. I have reviewed all these instructions with the patient and she is agreeable with her discharge today. ITEMS TO FOLLOW UP ON: The patient has a hypercoagulable workup that is outstanding and pending. This is a summarized report of a complex medical history and hospital stay. For more details, please see the entire medical record. TIME SPENT: Time for this discharge was 50 minutes; 25 minutes was spent with the patient discussing medications on discharge and followup instructions. CONDITION ON DISCHARGE: Stable. BENSON ZAVALA NP [id number]/[facility] #: [id number] HORACIO
--- NOTE | 2017-09-16 04:37 | EEG ---
ELECTROENCEPHALOGRAPHY: DATE OF PROCEDURE: DATE OF DICTATION: 09/15/17 PATIENT OF: Dr. Daly, Sofia Zavala, and Dr. Montana. * HISTORY: This is a 57-year-old woman who had a second possible transient global amnesic event and had had an abnormal EEG with slowing. PAST MEDICATIONS: Include: 1. Alprazolam. 2. Atorvastatin. 3. Plavix. INTERPRETATION: With the patient awake, background cerebral activity consists of moderate amplitude, posterior dominant 10 to 11 Hz rhythm. Hyperventilation does not activate the record. With the patient asleep, background cerebral activity consists of diffuse irregular delta and theta activity of moderate amplitude. Normal patterns of sleep with vertex waves are noted. IMPRESSION: This awake and asleep EEG is within normal limits. [id number]/[facility] #: [id number] MTDD
[2017-09-16 12:41] LABS: Protein C Activity 150 % (70 - 150)
[2017-09-16 15:28] LABS: Whole Blood Vitamin B1 Level 187 nmol/L (70-180)
== END 2017-09-15 14:29 | disposition home or self-care (01) | DRG 66 ==
LOC: ED 12:31 → MEDTELE 16:13 → OBSVTOIN 09-14 15:58
PROVIDERS: ADMIT Internal Medicine; ATTEND Internal Medicine
DX: I63.8 Other cerebral infarction (principal); E78.5 Hyperlipidemia, unspecified; F41.8 Other specified anxiety disorders; G45.4 Transient global amnesia; R73.03 Prediabetes; Z79.899 Other long term (current) drug therapy; Z79.82 Long term (current) use of aspirin
CPT/HCPCS: 36415; 70450; 70496; 70498; 70551; 80048; 80053; 80061; 80307; 80320; 81003; 81015; 81240; 82306; 82607; 83036; 83520; 84425; 84439; 84443; 85025; 85027; 85220; 85303; 85306; 85610; 85730; 93005; 93306; 95819; A9270-GY; G0378; G0480; J1644; Q9967

== ENCOUNTER 2017-10-11 12:07 | Emergency (ER) | payer OTHER ==
[2017-10-11 12:53] VITALS: BP 137/66
--- NOTE | 2017-10-11 13:24 | UC ---
Eye Complaint HPI - HPI Summary HPI Summary: Pt presents with right eyelid redness and tenderness. She tells me that about 2 days ago she developed redness to her right lower eyelid with tenderness. She assumed this was a stye and tried doing warm compresses with no relief. Today she noticed some redness and mild swelling underneath her right eye. She denies fever, chills, headache, vision changes, contact wear, FB sensation, recent injury or exposure to shards/shavings, sinus symptoms, or recent illness. - History of Current Complaint Hx Obtained From: Patient Onset/Duration: Gradual Onset Timing: Constant Severity Initially: Mild Severity Currently: Mild Location of Injury: Eye Lid (lower) Aggravating Factor(s): Blinking, Other - Touch Alleviating Factor(s): Nothing <Merrick Scanlon - Last Filed: 10/11/17 15:44> <Caitlin Bunch - Last Filed: 10/11/17 15:56> - History of Current Complaint Chief Complaint: UCEye Stated Complaint: EYE ISSUE Time Seen by Provider: 10/11/17 13:18 - Allergies/Home Medications Allergies/Adverse Reactions: Allergies Allergy/AdvReac Type Severity Reaction Status Date / Time No Known Allergies Allergy Verified 10/11/17 12:44 PMH/Surg Hx/FS Hx/Imm Hx Previously Healthy: Yes Endocrine History: Dyslipidemia Psychological History: Anxiety, Depression - Surgical History Surgical History: Yes Surgery Procedure, Year, and Place[place] [facility] [place] pop pop bypass [facility] [place] ; [place] [facility] [place] TISSUE LU[place] [facility] [place] Family History Known Family History: Positive: Unknown, Cardiac Disease - [place], Other - Negative CVA, and breast cancer - Social History Occupation: Employed Full-time Lives: With Family Alcohol Use: Occasionally Alcohol Amount: 2-6/MONTH Substance Use Type: None Smoking Status (MU): Never Smoked Tobacco - Immunization History Most Recent Influenza Vaccination: 2017 Most Recent Pneumonia Vaccination: never <Merrick Scanlon - Last Filed: 10/11/17 15:44> Review of Systems Constitutional: Negative Skin: Other - Mild redness under right eye Eyes: Other - Right lower eyelid pain/redness ENT: Negative Respiratory: Negative Cardiovascular: Negative Gastrointestinal: Negative All Other Systems Reviewed And Are Negative: Yes <Merrick Scanlon - Last Filed: 10/11/17 15:44> Physical Exam Triage Information Reviewed: Yes Appearance: Well-Appearing, No Pain Distress, Well-Nourished Vital Signs: Initial Vital Signs Temp 98.2 F 10/11/17 12:47 Pulse 81 10/11/17 12:47 Resp 16 10/11/17 12:47 BP 137/66 10/11/17 12:47 Pulse Ox 98 10/11/17 12:47 Vital Signs Reviewed: Yes Eyes: Positive: Conjunctiva Clear, Other: - Right eye: There is a small nodule on the lower eyelid that is TTP, mild edema, and mild erythema. On the skin underneath her right eye there is mild erythema extending 1cm below her lower eyelid without edema or discharge. Vision OS/OD/OU: 20/20. Negative: Conjunctiva Inflamed, Discharge ENT: Positive: Hearing grossly normal, Pharynx normal, TMs normal, Uvula midline. Negative: Pharyngeal erythema, Nasal congestion, Nasal drainage, TM bulging, TM dull, TM red, Tonsillar swelling, Tonsillar exudate, Sinus tenderness Neck: Positive: Supple, Nontender, No Lymphadenopathy Respiratory: Positive: Chest non-tender, Lungs clear, Normal breath sounds Cardiovascular: Positive: Pulses Normal Neurological: Positive: Alert Psychological: Positive: Age Appropriate Behavior Skin: Negative: rashes <Merrick Scanlon - Last Filed: 10/11/17 15:44> Vital Signs: Initial Vital Signs Temp 98.2 F 10/11/17 12:47 Pulse 81 10/11/17 12:47 Resp 16 10/11/17 12:47 BP 137/66 10/11/17 12:47 Pulse Ox 98 10/11/17 12:47 <Caitlin Bunch - Last Filed: 10/11/17 15:56> Eye Complaint Course/Dx - Course Course Of Treatment: Suspect right eye hordeolum with potenial skin cellulitis below her eye. Will cover with Ofloxacin Opth and Keflex and advise to continue warm compresses. - Differential Dx/Diagnosis Differential Diagnosis/HQI/PQRI: Conjunctivitis, Foreign Body, Periorbital Cellulitis, Orbital Cellulitis Provider Diagnoses: Right eye hordeolum. Right cheek cellulitis <Merrick Scanlon - Last Filed: 10/11/17 15:44> Discharge <Merrick Scanlon - Last Filed: 10/11/17 15:44> <Caitlin Bunch - Last Filed: 10/11/17 15:56> - Discharge Plan Condition: Stable Disposition: HOME Prescriptions: Cephalexin CAP* [Keflex CAP*] 500 mg PO BID #14 cap Ofloxacin 0.3%(Ophth)(Nf) [Ocuflox OPTH 0.3%(NF)] 2 drop RIGHT EYE QID #1 btl Patient Education Materials: Mart[facility] (ED) Referrals: Alanna Daly MD [Primary Care Provider] - Additional Instructions: If you develop a fever, SOB, chest pain, new or worsening symptoms - please call your PCP or go to the ED. Your blood pressure was mildly elevated at todays visit. Please see your primary provider within 4 weeks for recheck and re-evaluation. 1) If you develop trouble with your vision, increased pain/swelling, or fever - please go to the ED. Attestation Statement User Type: Provider - I was available for consult. This patient was seen by the LISA. The patient was not presented to, seen by, or examined by me. -Arnulfo <Caitlin Bunch - Last Filed: 10/11/17 15:56>
== END 2017-10-11 13:35 | disposition home or self-care (01) ==
LOC: UCEAST 12:07
DX: H00.013 Hordeolum externum right eye, unspecified eyelid (principal); L03.211 Cellulitis of face; E78.5 Hyperlipidemia, unspecified; F41.9 Anxiety disorder, unspecified; F32.9 Major depressive disorder, single episode, unspecified
CPT/HCPCS: 99212; G0463